=== PATIENT | female | born 1990 | race Two or more races ===

== ENCOUNTER 2017-04-05 11:09 | Emergency (ER) | payer BC ==
[2017-04-05 11:39] LABS: APPEARANCE,URINE CLEAR (CLEAR); COLOR,URINE YELLOW (YELLOW)
[2017-04-05 11:40] LABS: OCCULT BLOOD,URINE NEGATIVE (NEGATIVE); PH URINE 7.5 (5.0 - 8.0); URINE HCG NEGATIVE (NEGATIVE); UROBILINOGEN URINE 0.2 Eu (0.2-1.0)
[2017-04-05 11:54] LABS: BASOPHILS % 0.5 (0.0-1.5); EOSINOPHILS % 2.2 % (0.0-6.8); MEAN CORPUSCULAR HEMOGLOBIN 26.3 pg (28.0-34.0); MEAN CORPUSCULAR VOLUME 77.3 fl (80.0-100.0); MONOCYTES % 4.1 % (0.0-11.0); NEUTROPHILS # 9.8 # k/uL (1.4-7.7)
[2017-04-05 12:04] LABS: eGFR (African) > 60; eGFR (Non-African) > 60
[2017-04-05 13:08] VITALS: BP 134/28
--- NOTE | 2017-04-05 13:20 | ED Physician Documentation ---
Abdominal Pain - HISTORIAN Historian: patient - HPI Stated Complaint: low abd pain Chief Complaint: Abdominal Pain Additonal Information: low periumbical abd pain onset 0800 [address] lasts few momentstnen easesconsiderably rates as 7-10 at worst has diarrhea after pain brownish in color Onset: hours (0800) Duration: waxing, waning Timing: better Context: denies: out of country travel, bad food Severity: moderate Quality: sharp Associated Symptoms: diarrhea - ROS CONST: no problems GI/: denies: constipation (but fewer bm activity past few days) CVS/RESP: none. denies: shortness of breath MS/SKIN/LYMPH: none. denies: joint pain, leg swelling, recent injury NEURO/PSYCH: none - SOCIAL HX Smoking History: non-smoker Alcohol Use: none Drug Use: none - FAMILY HX Family History: no significant history - PAST HX Past History: other (IBS AND PELVIC FLOOR DISORDER- But this pain does not resemble either) Other History: none Surgeries/Procedures: none Allergies/Adverse Reactions: Allergies Allergy/AdvReac Type Severity Reaction Status Date / Time Sulfa (Sulfonamide Allergy Verified 04/05/17 11:34 Antibiotics) - VITAL SIGNS Vital Signs: Vital Signs Temp Pulse Resp BP Pulse Ox 98.7 F 97 H 20 134/28 98 04/05/17 13:05 04/05/17 13:05 04/05/17 13:05 04/05/17 13:05 04/05/17 13:05 - REVIEWED ASSESSMENTS Nursing Assessment Reviewed: Yes Vitals Reviewed: Yes ED Results Lab/Radiology - Lab Results Lab Results: Lab Results 04/05/17 04/05/17 04/05/17 11:50 11:50 11:30 WBC 13.30 K/ul H K/ul (4.00-12.00) RBC 5.47 M/ul H M/ul (3.90-5.20) Hgb 14.4 g/dL g/dL (12.0-16.0) Hct 42.3 % % (34.5-46.5) MCV 77.3 fl L fl (80.0-100.0) MCH 26.3 pg L pg (28.0-34.0) MCHC 34.0 g/dL g/dL (30.0-36.0) RDW 13.2 % % (11.3-14.3) Plt Count 303 K/mm3 K/mm3 (130-400) Neut % (Auto) 73.4 % % (39.0-79.0) Lymph % (Auto) 19.1 % % (16.0-50.0) [place] % (Auto) 4.1 % % (0.0-11.0) Eos % (Auto) 2.2 % % (0.0-6.8) Baso % (Auto) 0.5 (0.0-1.5) Neut # (Auto) 9.8 # k/uL H # k/uL (1.4-7.7) Lymph # (Auto) 2.5 # k/uL # k/uL (0.6-4.0) Noble # (Auto) 0.5 # k/uL # k/uL (0.0-0.9) Eos # (Auto) 0.3 # k/uL # k/uL (0.0-0.6) Baso # (Auto) 0.1 # k/uL # k/uL (0.0-0.5) Reactive Lymphs % 0.7 % % (0.0-5.0) Reactive Lymphs # 0.1 # k/uL # k/uL (0.0-0.8) Sodium 140 mmol/L mmol/L (136-145) Potassium 3.6 mmol/L mmol/L (3.5-5.0) Chloride 104 mmol/L mmol/L (98-110) Carbon Dioxide 28 mmol/L mmol/L (20-32) BUN 11 mg/dL mg/dL (10-26) Creatinine 0.6 mg/dL mg/dL (0.4-1.5) Estimated Creat Clear 170 Est GFR ( Amer) > 60 (60 - ) Est GFR (Non-Af Amer) > 60 (60 - ) Glucose 84 mg/dL mg/dL (70-99) Calcium 10.1 mg/dL mg/dL (8.5-10.5) Total Bilirubin 0.4 mg/dL mg/dL (0.2-1.2) AST 19 U/L U/L (0-41) ALT 18 U/L U/L (0-45) Alkaline Phosphatase 70 U/L U/L (46-116) Total Protein 8.6 g/dL H g/dL (6.0-8.5) Albumin 5.2 g/dL g/dL (3.0-5.5) Urine Color Yellow (YELLOW) Urine Appearance Clear (CLEAR) Urine pH 7.5 (5.0 - 8.0) Ur Specific [place] 1.020 (1.010-1.030) Urine Protein Negative mg/dL mg/dL (NEGATIVE) Urine Ketones Negative mg/dL mg/dL (NEGATIVE) Urine Occult Blood Negative (NEGATIVE) Urine Nitrite Negative (NEGATIVE) Urine Bilirubin Negative (NEGATIVE) Urine Urobilinogen 0.2 Eu Eu (0.2-1.0) Ur Leukocyte Esterase 1+ H (NEGATIVE) Urine Glucose Negative mg/dL mg/dL (NEGATIVE) Urine HCG, Qual Negative (NEGATIVE) - Radiology Radiology Impressions: xs gas and feces - Orders Orders: ED Orders Category Date Time Status Place IV Lock 1T Care 04/05/17 11:50 Active ABD SERIES PA CHEST [RAD] Stat Exams 04/05/17 Ordered CBC/PLATELET/DIFF Routine Lab 04/05/17 11:50 Completed CMP Routine Lab 04/05/17 11:50 Completed UA MACRO DIP ONLY Routine Lab 04/05/17 11:30 Completed URINE CULTURE Routine Lab 04/05/17 11:30 Received URINE HCG Routine Lab 04/05/17 11:30 Completed Abdominal Pain Physical Exam - Physical Exam General Appearance: mild distress, moderate distress EENT: eye inspection normal NECK: normal inspection RESPIRATORY: no resp distress, chest non-tender, breath sounds normal. No: wheezes, rales, rhonchi CVS: reg rate & rhythm, heart sounds normal ABDOMEN: soft, non-tender (essentially - no rebound or murphys gall bladder sign neg renal punch - heel tap or rebound), decreased BS BACK: normal inspection, no CVA tenderness SKIN: warm/dry, normal color. No: cyanosis, diaphoresis, jaundice EXTREMITIES: non-tender, normal range of motion, other (neg heel tap) NEURO: oriented X3, motor nml, sensation nml, mood/affect nml, cognition normal Vital Signs: Vital Signs Temp Pulse Resp BP Pulse Ox 98.7 F 97 H 20 134/28 98 04/05/17 13:05 04/05/17 13:05 04/05/17 13:05 04/05/17 13:05 04/05/17 13:05 Discharge Clincal Impression: un dx abd pain, POST CONSTIPATION, should be possible const Referrals: TELLO WEBB [Primary Care Provider] - 2 Days Comments: after disc re furthur testing such as CT or trial w/ mg citrate pt elects try the mg citrate. she will call stat symptome worsen Condition: Good Disposition: 01 HOME, SELF-CARE Decision to Admit: NO Decision Time: 13:29
--- NOTE | 2017-04-05 21:33 | Diagnostic Imaging Report ---
CIERA YATES [id number] [facility].[address] [address] Report Submission Date: Apr 05, 2017 12:30:48 PM CDT Patient Study Name: JAIME ESCOBAR Date: Apr 05, 2017 12:07:33 PM CDT Modality Type: CR Gender: F Description: CHEST,ABDOMEN : 89 Institution: Physician: CIERA YATES Examination: Obstruction series History: Abdominal discomfort Findings: 8 views obtained of the chest and abdomen. Single view of the chest without focal infiltrate or effusion. Normal cardiac and mediastinal silhouette. No abnormal dilation of the large or small bowel. Air and stool throughout the large bowel. No suspicious calcification projecting over the renal fossa or the lower pelvic region. Osseous structures are appropriate for age. Mild s-shaped scoliotic curvature. Impression: No acute cardiopulmonary process. No ileus or obstruction. No suspicious calcifications by plain film sensitivity. Electronically signed on Apr 05, 2017 12:30:48 PM CDT by: Shimon DELEON
== END 2017-04-05 13:05 | disposition home or self-care (01) ==
LOC: ED 11:09
DX: R10.84 Generalized abdominal pain (principal)
CPT/HCPCS: 74022; 80053; 81002; 81025; 85025; 87086; 99283; S1016

== ENCOUNTER 2017-08-15 10:45 | Outpatient (CLI) | payer BC ==
--- NOTE | 2017-08-15 13:44 | Diagnostic Imaging Report ---
CLARISSA CORTEZ [facility] [address] [facility] [address] [address] Report Submission Date: Aug 15, 2017 11:41:46 AM INFECTION PREVENTION SPECIALIST Patient Study Name: JAIME ESCOBAR Date: Aug 15, 2017 11:23:09 AM INFECTION PREVENTION SPECIALIST Modality Type: CR Gender: F Description: CHEST : 89 Institution: [facility] Physician: CLARISSA CORTEZ Examination: PA and lateral chest. History: Evaluate lung browning. Comparison exam: 05 April 2017 Findings: PA lateral chest demonstrate a normal cardiac and mediastinal silhouette. No focal infiltrate. No blunting of the costophrenic margins. Osseous structures are appropriate for age. Impression: No acute pulmonary process. Electronically signed on Aug 15, 2017 11:41:46 AM INFECTION PREVENTION SPECIALIST by: Shimon DELEON
== END 2017-08-15 10:46 ==
LOC: RAD 10:45
PROVIDERS: ATTEND Physician Assistant
DX: R05 Cough (principal); Z32.00 Encounter for pregnancy test, result unknown
CPT/HCPCS: 71020; 81025

== ENCOUNTER 2017-09-07 13:04 | Outpatient (CLI) | payer BC, OTHER | END 2017-09-07 13:05 | LOC: LABRHC 13:04 | PROVIDERS: ATTEND Physician Assistant | DX: R30.0 Dysuria (principal) | CPT/HCPCS: 87086; 87186 ==